=== PATIENT | female | born 1975 | race Caucasian/White ===

== ENCOUNTER 2021-07-02 11:39 | Day surgery (SDC) | payer OTHER ==
[~2021-07-02 11:39] MED LIST: Lactated Ringers 1,000 ML IV SCH; Sodium Chloride 0.9% 10 ML Syringe FLUSH PRN; Sodium Chloride 0.9% 2.5 ML Syringe FLUSH PRN; Sodium Chloride 0.9% 20 ML SDV IV PRN; ceFAZolin 2 GM in Premix Bag 1 BAG IV ONE
[2021-07-02] MEDS ORDERED: HYDROmorphone 1 MG/ML Syringe IVPUSH PRN (12:25)
[2021-07-02] MEDS ORDERED: fentaNYL 100 MCG/2 ML SDV IVPUSH PRN (12:25)
[2021-07-02] MEDS ORDERED: Naloxone 0.4 MG/ML SDV IVPUSH PRN (12:25)
[2021-07-02] MEDS ORDERED: Albuterol 0.083% 2.5 MG/3 ML Neb Soln NEB PRN (12:25)
[2021-07-02] MEDS ORDERED: Ondansetron 4 MG/2 ML SDV IVPUSH PRN (12:25)
[2021-07-02] MEDS ORDERED: Metoclopramide 10 MG/2 ML SDV IVPUSH PRN (12:25)
[2021-07-02] MEDS ORDERED: Bupivacaine 0.5% 10 ML SDV ONE (12:47)
[2021-07-02] MEDS ORDERED: Octyl 2-Cyanoacrylate 1 Tube ONE (12:47)
[2021-07-02] MEDS ORDERED: Ondansetron 4 MG/2 ML SDV ONE (13:07)
[2021-07-02] MEDS ORDERED: fentaNYL 100 MCG/2 ML SDV ONE (13:08)
[2021-07-02] MEDS ORDERED: Glycopyrrolate 0.2 MG/ML SDV ONE (13:08)
[2021-07-02] MEDS ORDERED: Midazolam 1 MG/ML 2 ML SDV ONE (13:08)
[2021-07-02] MEDS ORDERED: Propofol 200 MG/20 ML SDV ONE (13:08)
[2021-07-02] MEDS ORDERED: ceFAZolin 1 GM Vial ONE (13:44)
[2021-07-02] MEDS ORDERED: Water For Injection, Sterile 20 ML ONE (13:44)
== END 2021-07-02 15:50 | disposition home or self-care (01) ==
LOC: MW.SDS 11:39
PROVIDERS: ATTEND Surgery
DX: D17.1 Benign lipomatous neoplasm of skin and subcutaneous tissue of trunk (principal); Z79.899 Other long term (current) drug therapy; Z98.890 Other specified postprocedural states
CPT/HCPCS: 21552; 81025; A9270; J0131; J0690; J2250; J2405; J2704; J3010; J3490; J7120; 00400